=== PATIENT | female | born 1945 | race Caucasian/White ===

== ENCOUNTER 2018-05-26 14:15 | Emergency (ER) | payer OTHER ==
--- NOTE | 2018-05-26 15:23 | EDPHY ---
H & P Stated Complaint: here to R/O DVT, ?UTI but s/sx gone now Time Seen by Provider: 05/26/18 14:43 HPI/ROS: CHIEF COMPLAINT: Pain behind left knee HISTORY OF PRESENT ILLNESS: Patient is a 72-year-old female who is visiting from out of town. For the last 2 days she has had a slight ache behind her left knee. No swelling. No chest pain or shortness of breath. It does not hurt worse with movement or palpation. No trauma. She has had that knee replaced several years ago. She also reports that 2 days ago she had slight dysuria but it has since resolved. She is requesting recheck urinalysis. She also reported to nursing staff after triage that she had a episode of lightheadedness this morning while putting on her makeup. It has since resolved with no sequela. She did not have any chest pain shortness of breath etc. Severity: Mild Modifying factors: None REVIEW OF SYSTEMS: Constitutional: denies: chills, fever, recent illness, recent injury EENTM: denies: blurred vision, double vision, nose congestion Respiratory: denies: cough, shortness of breath Cardiac: denies: chest pain, irregular heart rate, lightheadedness, palpitations Gastrointestinal/Abdominal: denies: abdominal pain, diarrhea, nausea, vomiting, blood streaked stools Genitourinary: denies: dysuria, frequency, hematuria, pain Musculoskeletal: denies: joint pain, muscle pain Skin: denies: lesions, rash, jaundice, bruising Neurological: denies: headache, numbness, paresthesia, tingling, dizziness, weakness Hematologic/Lymphatic: denies: blood clots, easy bleeding, easy bruising Immunologic/allergic: denies: HIV/AIDS, transplant 10 systems reviewed and negative except as noted EXAM: GENERAL: Well-appearing, well-nourished and in no acute distress. HEAD: Atraumatic, normocephalic. EYES: Pupils equal round and reactive to light, extraocular movements intact, sclera anicteric, conjunctiva are normal. ENT: TMs normal, nares patent, oropharynx clear without exudates. Moist mucous membranes. NECK: Normal range of motion, supple without lymphadenopathy or JVD. LUNGS: Breath sounds clear to auscultation bilaterally and equal. No wheezes rales or rhonchi. HEART: Regular rate and rhythm without murmurs, rubs or gallops. ABDOMEN: Soft, nontender, normoactive bowel sounds. No guarding, no rebound. No masses appreciated. BACK: No CVA tenderness, no spinal tenderness, step-offs or deformities EXTREMITIES: Normal range of motion, no pitting or edema. No clubbing or cyanosis. No edema or swelling. No erythema. No tenderness. NEUROLOGICAL: Cranial nerves II through XII grossly intact. Normal speech, normal gait. 5/5 strength, normal movement in all extremities, normal sensation , normal reflexes PSYCH: Normal mood, normal affect. SKIN: Warm, dry, normal turgor, no visible rashes or lesions. Source: Patient Exam Limitations: No limitations - Personal History Current Tetanus/Diphtheria Vaccine: No Current Tetanus Diphtheria and Acellular Pertussis (TDAP): No - Medical/Surgical History Hx Asthma: No Hx Chronic Respiratory Disease: No Hx Diabetes: No Hx Cardiac Disease: No Hx Renal Disease: No Hx Cirrhosis: No Hx Alcoholism: No Hx HIV/AIDS: No Hx Splenectomy or Spleen Trauma: No Other PMH: HTN, harriet, knee replacement LT - Family History Significant Family History: No pertinent family hx - Social History Smoking Status: Former smoker Alcohol Use: None Drug Use: None Constitutional: Initial Vital Signs Temperature (C) 36.7 C 05/26/18 14:18 Heart Rate 62 05/26/18 14:18 Respiratory Rate 16 05/26/18 14:18 Blood Pressure 157/85 H 05/26/18 14:18 O2 Sat (%) 93 05/26/18 14:18 O2 Delivery Mode Room Air Allergies/Adverse Reactions: morphine Allergy (Verified 05/26/18 14:17) Penicillins Allergy (Verified 05/26/18 14:17) Home Medications: Medication Instructions Recorded Cephalexin [Keflex] 500 mg PO TID #21 cap 05/26/18 Lisinopril/Hydrochlorothiazide 05/26/18 Metoprolol Succinate 05/26/18 Nexium 05/26/18 Medical Decision Making - Diagnostics EKG Interpretation: An EKG obtained and was read and documented in trace view. Please see trace view for full reading and report. Sinus rhythm, no acute ischemic changes Imaging Results: Imaging Impressions Extremity Venous Study 05/26/18 14:25 Impression: 1. Negative for left lower extremity DVT. 2. Mildly complex 2.1 cm popliteal cyst. Findings and recommendations discussed with RAYNE ALEXIS at 1531 hour, 2017. Imaging: Discussed imaging studies w/ vp product management Radiologist ED Course/Re-evaluation: The patient was at ultrasound when I 1st tried to examine her. When she returned we discussed her symptoms it seems primarily consistent with a Pope cyst. Will await ultrasound results. She is also requesting that her urine checked because she had dysuria 2 days ago. She had an episode several hours ago this morning of lightheadedness. She did not faint. She did not have any chest pain or shortness of breath at the time. Her blood pressures been slightly high here today which she states is her baseline. Who performed an EKG which is reassuring. She declined further workup or testing concerning the presyncope episode 3:50 p.m. we discussed the ultrasound in urinalysis results. The patient is relieved. I will start her on Keflex now and write her prescription. We will send her urine for cultures. She states that that fits with her symptoms of frequency a few days ago and slight nausea yesterday. Differential Diagnosis: Partial list of the Differential diagnosis considered include but were not limited to; urinary tract infection, Pope cyst, DVT, arrhythmia and although unlikely based on the history and physical exam, I also considered seizure, acute coronary disease, sepsis. I discussed these differential diagnoses and the plan with the patient as well as the usual and expected course. The patient understands that the diagnosis is provisional and that in medicine we are not always correct and that further workup is often warranted. Usual and customary warnings were given. All of the patient's questions were answered. The patient was instructed to return to the emergency department should the symptoms at all worsen or return, otherwise to followup with the physician as we discussed. - Data Points Laboratory Results: 05/26/18 15:27 Urine Color YELLOW Urine Appearance HAZY Urine pH 5.0 (5.0-7.5) Ur Specific Brooks 1.016 (1.002-1.030) Urine Protein NEGATIVE (NEGATIVE) Urine Ketones NEGATIVE (NEGATIVE) Urine Blood NEGATIVE (NEGATIVE) Urine Nitrate NEGATIVE (NEGATIVE) Urine Bilirubin NEGATIVE (NEGATIVE) Urine Urobilinogen NEGATIVE EU EU (0.2-1.0) Ur Leukocyte Esterase 3+ H (NEGATIVE) Urine RBC 5-10 /hpf H /hpf (0-3) Urine WBC 5-10 /hpf H /hpf (0-3) Ur Epithelial Cells 1+ /lpf /lpf (NONE-1+) Urine Bacteria TRACE /hpf H /hpf (NONE SEEN) Urine Mucus TRACE /lpf /lpf (NONE-1+) Urine Glucose 3+ H (NEGATIVE) Medications Given: Discontinued Medications Cephalexin HCl (Keflex) 500 mg PO EDNOW ONE PRN Reason: Protocol Stop: 05/26/18 15:50 Last Admin: 05/26/18 16:00 Dose: 500 mg Departure - Departure Disposition: Home, Routine, Self-Care Clinical Impression: UTI (urinary tract infection) Qualifiers: Urinary tract infection type: acute cystitis Hematuria presence: without hematuria Qualified Code(s): N30.00 - Acute cystitis without hematuria Condition: Fair Instructions: Urinary Tract Infection in Women (DC) Referrals: WALLACE KNOWLES [Other] - As per Instructions Prescriptions: Cephalexin [Keflex] 500 mg PO TID #21 cap
--- NOTE | 2018-05-26 15:29 | CPEKG ---
Test Reason : OPEN Blood Pressure : / mmHG Vent. Rate : 062 BPM Atrial Rate : 061 BPM P-R Int : 179 ms QRS Dur : 098 ms QT Int : 439 ms P-R-T Axes : 005 -19 055 degrees QTc Int : 446 ms Sinus rhythm Borderline left axis deviation Abnormal R-wave progression, early transition Confirmed by Angel Martinez ([id number]) on 05/26/2018 3:28:21 PM Referred By: Confirmed By:Angel Martinez
[2018-05-26] MEDS ORDERED: CEPHALEXIN 500 MG CAP PO ONE (15:49)
[2018-05-26 16:08] VITALS: BP 150/82
== END 2018-05-26 16:10 | disposition home or self-care (01) ==
DX: M71.22 Synovial cyst of popliteal space [Baker], left knee (principal); N30.00 Acute cystitis without hematuria; I10 Essential (primary) hypertension; Z87.891 Personal history of nicotine dependence; Z96.652 Presence of left artificial knee joint